=== PATIENT | male | born 1950 | race Caucasian/White ===

== ENCOUNTER 2018-10-24 03:44 | Emergency (ER) | payer OTHER ==
[~2018-10-24] VITALS: Ht 182.9 cm; Wt 52.6 kg
--- NOTE | 2018-10-24 03:50 | NUR ---
BIBA FOR C/O SOB. PT CAME IN ON NON- REBREATHER . MD AND RT AT THE BED SDIE, PT WAS PLACED ON A BIPAP. ALERT AND ORIENTED, RESPONSIVE. ON A MONITOR,
[2018-10-24] MEDS ORDERED: methylPREDNISolone SOD SUCC 125 MG/2ML VIAL ONE (03:57)
[2018-10-24 03:59] LABS: BASOPHILS # (AUTO) 0.1 /CMM (0.0-0.2); EOSINOPHILS % (AUTO) 13.8 % (0.0-6.0); HEMATOCRIT 43 % (39-51); HEMOGLOBIN 14.3 g/dL (13.5-17.5); LYMPHOCYTES # (AUTO) 3.5 /CMM (0.8-4.8); LYMPHOCYTES % (AUTO) 37.1 % (20.0-44.0); MEAN CORPUSCULAR HGB CONC 33 g/dl (31.0-36.0); MEAN CORPUSCULAR VOLUME 90 fL (80-96); MONOCYTES # (AUTO) 0.9 /CMM (0.1-1.30); MONOCYTES % (AUTO) 9.3 % (2.0-12.0); NEUTROPHILS # (AUTO) 3.7 /CMM (1.8-8.9); NEUTROPHILS % (AUTO) 38.8 % (43.0-81.0); PLATELET COUNT (AUTO) 211 /CMM (150-450); RED BLOOD CELL COUNT(AUTO) 4.82 MIL/uL (4.5-6.0); WHITE BLOOD COUNT (AUTO) 9.5 K/uL (4.3-11.0)
[2018-10-24] MEDS ORDERED: IPRATROPIUM NEB FS 0.5 MG/2.5 ML AMPUL.NEB NEB ONE (04:00)
[2018-10-24] MEDS ORDERED: ALBUTEROL FS 2.5 MG/0.5 ML VIAL.NEB NEB ONE (04:00)
[2018-10-24] MEDS ORDERED: methylPREDNISolone SOD SUCC 125 MG/2ML VIAL IV ONE (04:00)
[2018-10-24 04:08] LABS: CALCIUM, SERUM 9.4 mg/dL (8.5-10.1); CARBON DIOXIDE 33 mmol/L (21-32); CHLORIDE 104 mmol/L (98-107); GLUCOSE 128 mg/dL (74-106); SODIUM SERUM 144 mmol/L (136-145); UREA NITROGEN, BLOOD 15 mg/dL (7-18)
[2018-10-24 04:20] LABS: ALANINE AMINOTRANSFERASE 20 U/L (12-78); ALBUMIN 4.2 g/dL (3.4-5.0); ALKALINE PHOSPHATASE 96 U/L (46-116); ASPARTATE AMINOTRANSFERASE 14 U/L (15-37); B-TYPE NATRIURETIC PEPTIDE 74 PG/ML (0-125); BILIRUBIN,DIRECT 0.1 mg/dL (0.0-0.2); BILIRUBIN,TOTAL 0.5 mg/dL (0.2-1.0); TOTAL PROTEIN, SERUM 7.8 g/dL (6.4-8.2)
[2018-10-24] MEDS ORDERED: DIAZ10TA4 PO (04:49)
[2018-10-24] MEDS ORDERED: TRAZ-182 PO (04:49)
--- NOTE | 2018-10-24 04:52 | NUR ---
PT WAS TOOK OFF THE BIPAP AND PLACED ON SUPPLEMENTAL O2 AT 4LPM VIA NC. WILL MONITOR PT VERY CLOSELY.
--- NOTE | 2018-10-24 06:11 | NUR ---
PT IN BED AWAKE AND ALERT. BREATHING EVENLY. REPORTED FEELING MUCH BETTER. VSS. SATTING 93-94% ON O2 AT 4LPM. TRANSPORTATION IN PROCESS. PT AWARE AND CINCENT SIGNED. WILL CONT TO MONITOR ,
--- NOTE | 2018-10-24 06:59 | NUR ---
pt accepted to [facility] by Earle WALKER. Bed 210-B. # for report [phone].
--- NOTE | 2018-10-24 07:24 | NUR ---
PLACED A CALL TO [facility] TO GIVE REPORT. REQUESTING TO CALL BACK IN 20 MINUTES. WILL ENDORSE TO AM SHIFT .PT AWAKE AND ALERT. W/ NO RESP DISTRESS. VSS.
--- NOTE | 2018-10-24 07:27 | NUR ---
[facility] eta [phone]
[2018-10-24 07:35] VITALS: BP 104/70
--- NOTE | 2018-10-24 08:18 | NUR ---
pt transport here in facility
--- NOTE | 2018-10-24 08:48 | NUR ---
PT [facility], PT LEFT IN STABLE CONDITION, -SOB, NAD NOTED, VSS. REPORT GIVEN TO STAFF.
== END 2018-10-24 08:56 | disposition short-term general hospital (02) ==
LOC: ER 03:46
DX: J96.90 Respiratory failure, unspecified, unspecified whether with hypoxia or hypercapnia (principal); J44.1 Chronic obstructive pulmonary disease with (acute) exacerbation; R00.0 Tachycardia, unspecified; Z91.011 Allergy to milk products
CPT/HCPCS: 36415; 71045; 80048; 80076; 83605; 83880; 84484; 85025; 85730; 87040 ×2; 93005; 94640; 96374; 99285; J2930